=== PATIENT | female | born 1965 | race Caucasian/White ===

== ENCOUNTER → 2023-12-13 16:10 | Outpatient (REF) | payer OTHER, SELFPAY | LOC: WDC 16:10 | PROVIDERS: ATTENDING PHYSICIAN Nurse Practitioner | DX: Z12.31 Encounter for screening mammogram for malignant neoplasm of breast (principal) | CPT/HCPCS: 77063; 77067 ==

== ENCOUNTER 2024-11-16 06:20 | Day surgery (SDC) | payer OTHER, SELFPAY | END 2024-11-16 15:37 | disposition home or self-care (01) | LOC: GI 06:20 | PROVIDERS: ATTENDING PHYSICIAN Specialist | DX: Z12.11 Encounter for screening for malignant neoplasm of colon (principal); Z80.0 Family history of malignant neoplasm of digestive organs | CPT/HCPCS: G0105 ==